=== PATIENT | female | born 1975 | race Caucasian/White ===

== ENCOUNTER 2022-06-21 15:05 | Outpatient (CLI) | payer MEDICAID, SELFPAY ==
--- NOTE | 2022-06-21 15:20 | CRLHL7_ITS ---
For Patients: As a result of the Century Cures Act, medical imaging exams and procedure reports are released immediately into your electronic medical record. You may view this report before your referring provider. If you have questions, please contact your health care provider. BILATERAL SCREENING MAMMOGRAM WITH COMPUTER-AIDED DETECTION TECHNIQUE: CC and MLO views were obtained. These mammographic images have been obtained using full-field digital technique. These mammographic images were interpreted with the benefit of computer-aided detection. COMPARISON FILM: 03/14/21, 02/15/20, 07/01/18. FINDINGS: There are scattered areas of fibroglandular density IMPRESSION: There is no radiographic evidence for malignancy. ASSESSMENT: BI-RADS Category 2: Benign RECOMMENDATION: Routine screening mammogram in 1 year. A lay language report of this examination will be provided to the patient. Dane Cuevas M.D. Diagnostic Radiologist [email or web address] MARTELL/Dictated by: Dane Cuevas MD @ 06/22/2022 9:22:00 AM (Electronically Signed)
== END 2022-06-21 15:06 | disposition home or self-care (01) ==
LOC: MAMMO 15:06
PROVIDERS: PCP Physician Assistant Medical; Visit Provider Obstetrics & Gynecology
DX: Z12.31 Encounter for screening mammogram for malignant neoplasm of breast (principal)
CPT/HCPCS: 77067

== ENCOUNTER 2023-08-13 09:00 | Outpatient (RCR) | payer MEDICAID, SELFPAY | END 2023-12-11 23:59 | disposition home or self-care (01) | PROVIDERS: PCP Physician Assistant Medical; Visit Provider Physician Assistant | DX: H81.11 Benign paroxysmal vertigo, right ear (principal); Z51.89 Encounter for other specified aftercare | CPT/HCPCS: 95992; 97112; 97162 ==

== ENCOUNTER 2023-10-09 10:30 | Outpatient (RCR) | payer MEDICAID, SELFPAY | END 2024-01-20 11:45 | disposition home or self-care (01) | PROVIDERS: PCP Physician Assistant Medical; Visit Provider Physician Assistant | DX: H81.11 Benign paroxysmal vertigo, right ear (principal); M54.2 Cervicalgia; Z51.89 Encounter for other specified aftercare | CPT/HCPCS: 95992; 97161; 97535 ==

== ENCOUNTER 2024-05-18 12:29 | Outpatient (CLI) | payer MEDICAID, SELFPAY | END 2024-05-18 12:30 | disposition home or self-care (01) | PROVIDERS: PCP Physician Assistant Medical; Visit Provider Nurse Practitioner Family | DX: R10.9 Unspecified abdominal pain (principal) | CPT/HCPCS: 80053; 82150; 83690; 86140 ==